=== PATIENT | male | born 1980 | race Two or more races ===

== ENCOUNTER 2021-12-29 08:00 | Emergency (ER) | payer OTHER ==
[~2021-12-29] VITALS: Ht 180.3 cm; Wt 122.5 kg
== END 2021-12-29 10:20 | disposition home or self-care (01) ==
LOC: ER 08:00
DX: K64.4 Residual hemorrhoidal skin tags (principal); K59.00 Constipation, unspecified; Z91.041 Radiographic dye allergy status; Z88.0 Allergy status to penicillin; Z91.013 Allergy to seafood

== ENCOUNTER 2021-12-31 16:05 | Emergency (ER) | payer OTHER ==
[~2021-12-31] VITALS: Ht 170.2 cm; Wt 63.5 kg
[2021-12-31] MEDS ORDERED: PEPCID AC20 MG PO (22:36)
== END 2021-12-31 22:51 | disposition home or self-care (01) ==
LOC: ER 16:05
DX: R10.32 Left lower quadrant pain (principal); Z91.041 Radiographic dye allergy status; Z88.0 Allergy status to penicillin; Z91.013 Allergy to seafood; K57.90 Diverticulosis of intestine, part unspecified, without perforation or abscess without bleeding; K76.0 Fatty (change of) liver, not elsewhere classified

== ENCOUNTER 2022-03-29 14:57 | Emergency (ER) | payer OTHER ==
[~2022-03-29] VITALS: Ht 180.3 cm; Wt 118.8 kg
[~2022-03-29 14:57] MED LIST: PEPCID AC20 MG PO
== END 2022-03-29 18:45 | disposition home or self-care (01) ==
LOC: ER 14:57
DX: S99.921A Unspecified injury of right foot, initial encounter (principal); X58.XXXA Exposure to other specified factors, initial encounter; Y93.9 Activity, unspecified; Y92.9 Unspecified place or not applicable; Y99.9 Unspecified external cause status; N49.2 Inflammatory disorders of scrotum; Z91.041 Radiographic dye allergy status; Z88.0 Allergy status to penicillin; Z91.013 Allergy to seafood